=== PATIENT | female | born 1995 | race Caucasian/White ===

== ENCOUNTER 2018-09-12 20:48 | Emergency (ER) | payer OTHER ==
[2018-09-12] MEDS ORDERED: Tetan/Diph/Pertus SYR(Tdap)* 0.5 ML SYR(BOOSTRIX) use SYR IM ONE (20:49)
[2018-09-12 20:58] VITALS: BP 136/84
[2018-09-12] MEDS ORDERED: Lidocaine 2% PF * 5 ML VIAL INJ ONE (21:04)
--- NOTE | 2018-09-12 21:05 | UC ---
Laceration HPI - HPI Summary HPI Summary: 23 yo female presents with RIGHT thumb laceration. She tells me that [employer] she was unpacking her apartment and a glass broke - she sustained a laceration to the dorsal aspect of her RIGHT thumb overlying the IP joint. She bandaged the area and came to . Her last tetanus shot was within the last 2-3 years. - History Of Current Complaint Chief Complaint: UCLaceration Stated Complaint: FINGER LACERATION Time Seen by Provider: 09/12/18 21:01 Hx Obtained From: Patient Hx Last Menstrual Period: 3 WEEKS AGO Laceration Location: Finger Mechanism Of Injury: Sharp Trauma Severity: Mild Pain Intensity: 2 Pain Scale Used: 0-10 Numeric - Allergies/Home Medications Allergies/Adverse Reactions: Allergies Allergy/AdvReac Type Severity Reaction Status Date / Time Sulfa (Sulfonamide Allergy Hives Verified 09/12/18 20:58 Antibiotics) Home Medications: Home Medications Escitalopram Oxalate [Lexapro 20 mg] 20 mg PO DAILY 09/12/18 [History Confirmed 09/12/18] Levothyroxine TAB* [Synthroid TAB*] 100 mcg PO DAILY 09/12/18 [History Confirmed 09/12/18] Norgestimate-Eth Estradiol(NF) [Ortho Tri-Cyclen (NF)] 1 tab PO DAILY 09/12/18 [ History Confirmed 09/12/18] buPROPion SR TAB* [Wellbutrin SR TAB*] 300 mg PO DAILY 09/12/18 [History Confirmed 09/12/18] PMH/Surg Hx/FS Hx/Imm Hx Endocrine History: Hypothyroidism Psychological History: Anxiety, Depression - Surgical History Surgical History: None - Social History Alcohol Use: Occasionally Substance Use Type: None Smoking Status (MU): Never Smoked Tobacco - Immunization History Most Recent Tetanus Shot: <5 YEARS Review of Systems All Other Systems Reviewed And Are Negative: Yes Constitutional: Positive: Negative Skin: Positive: Other - Laceration right thumb Respiratory: Positive: Negative Cardiovascular: Positive: Negative Musculoskeletal: Positive: Negative Neurological: Positive: Negative Psychological: Positive: Negative Physical Exam - Summary Physical Exam Summary: GENERAL: NAD. WDWN. No pain distress. SKIN: RIGHT thumb: overlying IP there is a 7mm linear laceration just through the dermis. No tendon involvement. At extension the lac is well approximated, but opens with thumb flexion at IP CHEST: No accessory muscle use. Breathing comfortably and in no distress. CV: Pulses intact. Cap refill <2seconds MSK: Right thumb FROM and 5/5 strength. NEURO: Alert. PSYCH: Age appropriate behavior. Triage Information Reviewed: Yes Vital Signs: Initial Vital Signs Temp 97.9 F 09/12/18 20:53 Pulse 78 09/12/18 20:53 Resp 16 09/12/18 20:53 BP 136/84 09/12/18 20:53 Pulse Ox 100 09/12/18 20:53 Vital Signs Reviewed: Yes Laceration Repair - Laceration Repair 1 Description: Linear Laceration Size After Repair: Length (cm) - 0.7 Type Injection: Local Anesthesia Used: 2.0% Lido Cleansing Completed Via Routine Prep: Yes Closure Material: Sutures - TWO Closure Method: Single Layer Suture Of: Skin Suture Type: Prolene - 5-0 Laceration Course/Dx - Course/Dx Course Of Treatment: The procedure was explained to the pt and all questions were answered. A time out was performed, witnessed, and signed. The area was irrigated with 250mL sterile saline. 1mL of 2% lidocaine without epi was administered and good anesthetization was achieved. In the usual sterile fashion , TWO 5-0 prolene interrupted sutures were placed. The wound was bandaged with triple anbx ointment and a bandaid. Pt tolerated procedure well. - Diagnosis Provider Diagnosis: Laceration of thumb Discharge - Sign-Out/Discharge Documenting (check all that apply): Patient Departure All imaging exams completed and their final reports reviewed: No Studies - Discharge Plan Condition: Stable Disposition: HOME Patient Education Materials: Care For Your Stitches (ED), Laceration (DC) Referrals: No Primary Care Phys,NOPCP [Primary Care Provider] - Additional Instructions: If you develop a fever, shortness of breath, chest pain, new or worsening symptoms - please call your PCP or go to the ED. 1) Please keep the area bandaged, clean, dry, and intact for the next 24- 48hours. 2) If you develop a fever, colored or thick discharge, increased pain or swelling - please call your PCP or go to the ED. 3) Please return in 10-12 days to have your TWO sutures removed. - Billing Disposition and Condition Condition: STABLE Disposition: Home
== END 2018-09-12 21:34 | disposition home or self-care (01) ==
LOC: UCEAST 20:48
DX: S61.011A Laceration without foreign body of right thumb without damage to nail, initial encounter (principal); W25.XXXA Contact with sharp glass, initial encounter; Y93.E6 Activity, residential relocation; Y92.039 Unspecified place in apartment as the place of occurrence of the external cause; E03.9 Hypothyroidism, unspecified; F41.9 Anxiety disorder, unspecified; F32.9 Major depressive disorder, single episode, unspecified; Z88.2 Allergy status to sulfonamides
CPT/HCPCS: 12001; 99211; G0463

== ENCOUNTER 2018-10-13 02:45 | Emergency (ER) | payer OTHER ==
--- NOTE | 2018-10-13 03:20 | ED ---
HPI Chest Pain - HPI Summary HPI Summary: This patient is a 23 year old female presenting to [facility] with a chief complaint of chest pain for the last 12 hours. She reports vomiting and anxiety. She reports the pain in the lower sternal. She states that laying flat made it worse. She tried going for a walk but she says it did not help. She denies SOB. She says she gets this pain with anxiety attacks. She took Xanax and it did not help. She denies abdominal pain. She rates her pain 6/10 in severity. Her LNMP was 3 weeks ago. She says she recently has influenza that resolved 2 days ago. - History of Current Complaint Chief Complaint: EDChestPainROMI Time Seen by Provider: 10/13/18 03:14 Hx Obtained From: Patient Hx Last Menstrual Period: 3 WEEKS AGO Onset/Duration: Started Hours Ago Timing: Constant Initial Severity: Moderate Current Severity: Moderate Pain Intensity: 6 Pain Scale Used: 0-10 Numeric Chest Pain Location: Lower Sternal Chest Pain Radiates: No Aggravating Factor(s): Position Associated Signs and Symptoms: Positive: Chest Pain, Nausea, Vomiting - Allergy/Home Medications Allergies/Adverse Reactions: Allergies Allergy/AdvReac Type Severity Reaction Status Date / Time Sulfa (Sulfonamide Allergy Hives Verified 10/13/18 02:56 Antibiotics) PMH/Surg Hx/FS Hx/Imm Hx Cardiovascular History: Denies: Hx Hypertension Psychiatric History: Reports: Hx Anxiety Infectious Disease History: No Infectious Disease History: Denies: Traveled Outside the [place] in Last 30 Days - Family History Known Family History: Negative: Cardiac Disease, Diabetes - Social History Alcohol Use: Occasionally Substance Use Type: Reports: None Smoking Status (MU): Never Smoked Tobacco Review of Systems Positive: Chest Pain Negative: Shortness Of Breath Positive: Vomiting, Nausea Positive: Anxious All Other Systems Reviewed And Are Negative: Yes Physical Exam - Summary Physical Exam Summary: Appearance: Well-appearing, Well-nourished, lying in bed comfortably Skin: Warm, dry, no obvious rash Eyes: sclera anicteric, no conjunctival pallor ENT: mucous membranes moist, pharynx appears normal Neck: Supple, nontender Respiratory: Clear to auscultation, no signs of respiratory distress Cardiovascular: Normal S1, S2. No murmurs. Normal distal pulses in tibial and radial bilaterally. Abdomen: Soft, nontender, normal active bowel sounds present Musculoskeletal: Normal, Strength/ROM Intact Neurological: A&Ox3, awake and alert, mentation is normal, speech is fluent and appropriate Psychiatric: affect is normal, does not appear anxious or depressed Triage Information Reviewed: Yes Vital Signs On Initial Exam: Initial Vitals Temp Pulse Resp BP Pulse Ox 98.8 F 69 16 148/93 100 10/13/18 02:54 10/13/18 02:54 10/13/18 02:54 10/13/18 02:54 10/13/18 02:54 Vital Signs Reviewed: Yes Diagnostics - Vital Signs Vital Signs Temp Pulse Resp BP Pulse Ox 10/13/18 03:13 18 10/13/18 03:11 14 148/93 10/13/18 02:54 98.8 F 69 16 148/93 100 - Laboratory Result Diagrams: 10/13/18 04:28 10/13/18 04:28 Lab Statement: Any lab studies that have been ordered have been reviewed, and results considered in the medical decision making process. - Radiology CXR Radiology Interpretation Completed By: ED Physician Summary of Radiographic Findings: No acute process. Awaiting official radiologist report. - EKG 0300 Cardiac Rate: NL EKG Rhythm: Sinus Rhythm - [address] Segment: Normal Ectopy: None Summary of EKG Findings: NSR at 68 BPM, P waves, QRS complex, and T waves are within normal limits, T waves and intervals are normal, no ischemic changes. This is a normal EKG Chest Pain Course/Dx - Course Course Of Treatment: This patient is a 23 year old female presenting to [facility] with a chief complaint of chest pain for the last 12 hours. She reports vomiting and anxiety. EKG and CXR were performed and were unremarkable for cardiopulmonary problems. The D-Dimer was positive and the patient will be signed-out to Dr. Carmichael awaiting CTA chest. - Diagnoses Provider Diagnoses: Chest pain Discharge - Sign-Out/Discharge Documenting (check all that apply): Sign-Out Patient Signing out patient TO: Heidi Carmichael - At shift change 0700 Patient Received Moderate/Deep Sedation with Procedure: No - Discharge Plan Condition: Stable Disposition: HOME Patient Education Materials: Chest Pain (ED) Referrals: [facility] [Outside] Additional Instructions: Follow up with your primary care physician in 1-3 days. RETURN TO THE EMERGENCY DEPARTMENT FOR CHANGING OR WORSENING SYMPTOMS. - Billing Disposition and Condition Condition: STABLE Disposition: Home - Attestation Statements Document Initiated by Fabiana: Yes Documenting Scribe: Ambrocio Marcial Provider For Whom Fabiana is Documenting (Include Credential): Kb Rodriguez MD Scribe Attestation: Ambrocio Hills, scribed for Kb Rodriguez MD on 10/15/18 at 1620. Scribe Documentation Reviewed: Yes Provider Attestation: The documentation as recorded by the Ambrocio lopez accurately reflects the service I personally performed and the decisions made by me, Kb Rodriguez MD Status of Scribe Document: Viewed
[2018-10-13 04:38] LABS: ABS Basophils 0.1 10^3/ul (0-0.2); ABS Eosinophils 0.1 10^3/ul (0-0.6); ABS Lymphocytes 1.6 10^3/ul (1.0-4.8); ABS Monocytes 0.6 10^3/ul (0-0.8); ABS Neutrophils 7.6 10^3/ul (1.5-7.7); ABS Nucleated RBC 0 10^3/ul; Eosinophil % 0.8 %; Hematocrit 37 % (35-47); Hemoglobin 12.3 g/dl (12.0-16.0); Lymphocyte % 16.1 %; Mean Corpuscular HGB Conc 33 g/dl (31-36); Mean Corpuscular Hemoglobin 30 pg (27-31); Mean Corpuscular Volume 88 fL (80-97); Mean Platelet Volume 8.5 fL (7.4-10.4); Nucleated Red Blood Cells % 0.1; Platelet Count 308 10^3/ul (150-450); Red Blood Count 4.16 10^6/ul (4.00-5.40); Red Cell Distribution Width 13 % (10.5-15)
[2018-10-13 04:57] LABS: ALT 8 U/L (7-52); AST 11 U/L (13-39); Albumin 4.1 g/dL (3.2-5.2); Albumin/Globulin Ratio 1.5 (1-3); Alkaline Phosphatase 53 U/L (34-104); Anion Gap 5 mmol/L (2-11); BUN/Creatinine Ratio 15.7 (8-20); Blood Urea Nitrogen 11 mg/dL (6-24); CO2 Carbon Dioxide 26 mmol/L (22-32); Calcium 9.1 mg/dL (8.6-10.3); Chloride 105 mmol/L (101-111); EGFR African American 123.4 (>60); Globulin 2.7 g/dL (2-4); Glucose 114 mg/dL (70-100); Potassium 3.8 mmol/L (3.5-5.0); Sodium 136 mmol/L (135-145); Total Protein 6.8 g/dL (6.4-8.9)
[2018-10-13 05:04] LABS: HCG Pregnancy < 0.60 mIU/mL
[2018-10-13] MEDS ORDERED: Iohexol 350* (CONTRAST) 500 ML MDV IV ONE (06:12)
--- NOTE | 2018-10-13 09:54 | ED ---
Progress - Progress Note Progress Note: This patient was signed out from Dr Rodriguez awaiting CTA Chest. CTA chest reveals , NO PULMONARY ARTERIAL FILLING DEFECT TO SUGGEST PULMONARY EMBOLISM. Dr Carmichael has reviewed this report. Pt states she has hx of anxiety and the CP today felt like an anxiety attack. She took a Xanax as she usually resolves it but today it did not. This concerned her and she wanted to come in to be looked at Course/Dx - Course Course Of Treatment: This patient was signed out from Dr Rodriguez awaiting CTA Chest. CTA chest reveals, NO PULMONARY ARTERIAL FILLING DEFECT TO SUGGEST PULMONARY EMBOLISM. Dr Carmichale has reviewed this report. Pt states she has hx of anxiety and the CP today felt like an anxiety attack. She took a Xanax as she usually resolves it but today it did not. This concerned her and she wanted to come in to be looked at - Diagnoses Provider Diagnoses: Chest pain Discharge - Sign-Out/Discharge Documenting (check all that apply): Patient Departure - d/c, Receiving Sign-Out Receiving patient FROM: Kb Rodriguez Patient Received Moderate/Deep Sedation with Procedure: No - Discharge Plan Condition: Stable Disposition: HOME Patient Education Materials: Chest Pain (ED) Referrals: [facility] [place] [facility] [Outside] Additional Instructions: Follow up with your primary care physician in 1-3 days. RETURN TO THE EMERGENCY DEPARTMENT FOR CHANGING OR WORSENING SYMPTOMS. - Billing Disposition and Condition Condition: STABLE Disposition: Home - Attestation Statements Document Initiated by Fabiana: Yes Documenting Scribe: Frederick Bo Provider For Whom Fabiana is Documenting (Include Credential): Heidi Carmichael MD Scribe Attestation: Frederick Hills scribed for Heidi Carmichael MD on 10/14/18 at 1720. Scribe Documentation Reviewed: Yes Provider Attestation: The documentation as recorded by the Frederick lopez accurately reflects the service I personally performed and the decisions made by me, Heidi Carmichael MD Status of Scribe Document: Viewed
[2018-10-13 10:16] VITALS: BP 130/74
== END 2018-10-13 10:16 | disposition home or self-care (01) ==
LOC: ED 02:45
DX: R07.9 Chest pain, unspecified (principal); Z88.2 Allergy status to sulfonamides; F41.9 Anxiety disorder, unspecified
CPT/HCPCS: 36415; 71045; 71275; 80053; 83605; 83690; 84484; 84702; 85025; 85379; 93005; 99283; Q9967

== ENCOUNTER 2019-08-06 13:12 | Emergency (ER) | payer OTHER ==
[2019-08-06 14:16] VITALS: BP 130/75
--- NOTE | 2019-08-06 14:53 | UC ---
Laceration HPI - HPI Summary HPI Summary: WAS CUTTING SOME [employer] WORKER BOARD WITH AN X-ACTO KNIFE TODAY WHEN SHE SLIPPED AND LACERATED HER LEFT THUMB. UP-TO-DATE TETANUS SHOT 2017. - History Of Current Complaint Chief Complaint: UCLaceration Stated Complaint: THUMB LACERATION Time Seen by Provider: 08/06/19 14:31 Hx Obtained From: Patient Hx Last Menstrual Period: 07/30/19 Laceration Location: Finger - LEFT THUMB Mechanism Of Injury: Sharp Trauma Onset/Duration: Sudden Onset, Lasting Hours, Still Present Severity: Moderate Pain Intensity: 5 Pain Scale Used: 0-10 Numeric Aggravating Factors: Nothing Related History: Dominant Hand Right - Allergies/Home Medications Allergies/Adverse Reactions: Allergies Allergy/AdvReac Type Severity Reaction Status Date / Time Sulfa (Sulfonamide Allergy Hives Verified 08/06/19 14:10 Antibiotics) PMH/Surg Hx/FS Hx/Imm Hx Previously Healthy: Yes - Surgical History Surgical History: Yes Surgery Procedure, Year, and Place: [facility] 2018 - Family History Known Family History: Negative: Cardiac Disease, Diabetes - Social History Alcohol Use: Occasionally Substance Use Type: None Smoking Status (MU): Never Smoked Tobacco - Immunization History Most Recent Tetanus Shot: <5 YEARS Review of Systems All Other Systems Reviewed And Are Negative: Yes Constitutional: Positive: Negative Skin: Positive: Other - LACERATION LEFT THUMB Respiratory: Positive: Negative Cardiovascular: Positive: Negative Gastrointestinal: Positive: Negative Physical Exam Triage Information Reviewed: Yes Appearance: Well-Appearing, No Pain Distress, Well-Nourished Vital Signs: Initial Vital Signs Temp 98.5 F 08/06/19 14:11 Pulse 65 08/06/19 14:11 Resp 18 08/06/19 14:11 BP 130/75 08/06/19 14:11 Pulse Ox 97 08/06/19 14:11 Vital Signs Reviewed: Yes Eyes: Positive: Conjunctiva Clear ENT: Positive: Hearing grossly normal Neck: Positive: Supple Respiratory: Positive: No respiratory distress, No accessory muscle use Cardiovascular: Positive: Pulses Normal Abdomen Description: Positive: Soft Musculoskeletal: Positive: No Edema Neurological: Positive: Alert Psychological: Positive: Age Appropriate Behavior Skin: Positive: Other - 1CM FLAP LIKE LACERATION DISTAL LEFT THUMB. Laceration Repair - Laceration Repair 1 Description: Irregular Laceration Size After Repair: Length (cm) - 1CM, Width (mm) - 0MM, Depth (mm) - 2MM Modified For Repair: No Cleansing Completed Via Routine Prep: Yes Closure Material: Skin Adhesive, SteriStrips Laceration Course/Dx - Course/Dx Course Of Treatment: SKIN EDGES WELL APPROXIMATED. LACERATION REPAIRED WITH GLUE AND STERI-STRIPS. TUBE GAUZE APPLIED. - Diagnosis Provider Diagnosis: Laceration of left thumb Discharge ED - Sign-Out/Discharge Documenting (check all that apply): Patient Departure All imaging exams completed and their final reports reviewed: No Studies - Discharge Plan Condition: Stable Disposition: HOME Patient Education Materials: Finger Laceration (ED) Referrals: [facility] [Outside] - If Needed Additional Instructions: SEEK FOLLOW-UP IF YOU DEVELOP SPREADING REDNESS OF THE SKIN, PURULENT DRAINAGE, FEVER, INCREASED PAIN OR ANY OTHER CONCERNING SYMPTOMS. THE STERISTRIPS WILL FALL OFF ON THEIR OWN IN THE NEXT 1-2 WEEKS. DO NOT PUT ANY OINTMENT ON TOP OF THEM. DO NOT SUBMERGE IN WATER FOR PROLONGED PERIOD OF TIME. OKAY FOR BRIEF SHOWER AFTER 24 HOURS AND THEN BE SURE TO ALLOW TO DRY COMPLETELY. - Billing Disposition and Condition Condition: STABLE Disposition: Home
== END 2019-08-06 15:50 | disposition home or self-care (01) ==
LOC: UCEAST 13:12
DX: S61.012A Laceration without foreign body of left thumb without damage to nail, initial encounter (principal); Z88.2 Allergy status to sulfonamides; W26.0XXA Contact with knife, initial encounter; Y92.9 Unspecified place or not applicable
CPT/HCPCS: 12001; 99211; G0463